=== PATIENT | female | born 1965 | race Caucasian/White ===

== ENCOUNTER → 2016-08-18 | Outpatient (CLI) | payer OTHER ==
[~2016-08-18] MED LIST: PRILOSEC 20MG20 MG PO; SYNTHROID0.075 MG/T PO
== END ==
LOC: MC.RAD 08:40
DX: Z12.31 Encounter for screening mammogram for malignant neoplasm of breast (principal)

== ENCOUNTER → 2017-09-24 | Outpatient (CLI) | payer OTHER | LOC: MC.RAD 09:55 | DX: Z12.31 Encounter for screening mammogram for malignant neoplasm of breast (principal); Z98.82 Breast implant status ==

== ENCOUNTER → 2018-09-26 | Outpatient (CLI) | payer OTHER | LOC: MC.RAD 08:45 | DX: Z12.31 Encounter for screening mammogram for malignant neoplasm of breast (principal); Z98.82 Breast implant status ==

== ENCOUNTER → 2020-03-01 | Outpatient (CLI) | payer BC | LOC: COL.RAD 09:59 | DX: M16.12 Unilateral primary osteoarthritis, left hip (principal); S73.102A Unspecified sprain of left hip, initial encounter; M67.854 Other specified disorders of tendon, left hip | CPT/HCPCS: A9585; Q9967 ==

== ENCOUNTER → 2020-03-31 | Outpatient (CLI) | payer BC | LOC: COL.RAD 09:22 | DX: K80.20 Calculus of gallbladder without cholecystitis without obstruction (principal); K76.0 Fatty (change of) liver, not elsewhere classified ==

== ENCOUNTER → 2020-10-07 | Outpatient (CLI) | payer BC | LOC: COL.VAS 10-04 13:30 | DX: I10 Essential (primary) hypertension (principal); I51.7 Cardiomegaly; R60.0 Localized edema; Z86.16 Personal history of COVID-19 ==

== ENCOUNTER → 2020-11-12 | Outpatient (CLI) | payer BC | LOC: MC.RAD 10-29 09:15 | DX: N64.89 Other specified disorders of breast (principal) ==

== ENCOUNTER → 2020-11-19 | Outpatient (CLI) | payer BC | LOC: MC.RAD 08:00 | DX: N64.89 Other specified disorders of breast (principal); R92.2 Inconclusive mammogram; Z98.82 Breast implant status ==

== ENCOUNTER → 2021-09-21 | Outpatient (CLI) | payer BC | LOC: COL.RAD 13:04 | DX: M79.671 Pain in right foot (principal) | CPT/HCPCS: J3301; Q9967 ==

== ENCOUNTER → 2021-12-08 | Outpatient (CLI) | payer BC | LOC: MC.RAD 09:50 | DX: Z12.31 Encounter for screening mammogram for malignant neoplasm of breast (principal) ==

== ENCOUNTER → 2024-01-22 | Outpatient (CLI) | payer BC | LOC: MC.RAD 09:57 | DX: Z12.31 Encounter for screening mammogram for malignant neoplasm of breast (principal) ==